=== PATIENT | male | born 1990 | race Caucasian/White ===

== ENCOUNTER 2021-07-17 23:58 | Emergency (ER) | payer BC ==
[~2021-07-17] VITALS: Ht 170.1 cm; Wt 138.9 kg
[~2021-07-17 23:58] MED LIST: ASPIRIN81 M1 PO; NKHM; VICODIN 500 MG-1 TAB PO
[2021-07-18 00:28] LABS: BASO # 0.1 10*3/uL (0.0-0.1); BASO % 0.2 % (0.0-1.0); EOS # 0.1 10*3/uL (0.0-0.4); EOS % 0.4 % (1.0-4.0); HEMATOCRIT 41.7 % (42.0-52.0); LYMPH # 2.5 10*3/uL (1.3-4.4); LYMPH % 11.2 % (27.0-41.0); MEAN CELL VOLUME 92.1 fl (80.0-94.0); MEAN CORPUSCULAR HGB 31.1 pg (27.0-31.0); MEAN CORPUSCULAR HGB CONC 33.8 g/dl (33.0-37.0); MEAN PLATELET VOLUME 10.3 fl (9.6-12.3); MONO # 1.4 10*3/uL (0.1-1.0); MONO % 6.2 % (3.0-9.0); NEUT % 81.5 % (47.0-73.0); PLATELET COUNT AUTOMATED 243 10*3/uL (130-400); RED BLOOD COUNT 4.53 10*6/uL (4.50-5.90); RED CELL DISTRI WIDTH 12.1 % (0-14.5); WHITE BLOOD COUNT 22.1 10*3/uL (4.8-10.8)
[2021-07-18 00:42] LABS: BUN 18 mg/dl (7-24); CHLORIDE 108 mmol/L (98-107); CREATININE 1.44 mg/dL (0.70-1.30); POTASSIUM 3.7 mmol/L (3.5-5.1); SODIUM 140 mmol/L (136-145)
[2021-07-18] MEDS ORDERED: LEVOFLOXACIN750 M2 PO (01:54)
[2021-07-18] MEDS ORDERED: PREDNISONE20 M1 PO (01:54)
== END 2021-07-18 01:58 | disposition home or self-care (01) ==
LOC: ED 23:58
PROVIDERS: Internal Medicine
DX: J20.8 Acute bronchitis due to other specified organisms (principal); D72.829 Elevated white blood cell count, unspecified; N18.31 Chronic kidney disease, stage 3a